=== PATIENT | female | born 1990 | race Two or more races ===

== ENCOUNTER 2024-04-18 20:35 | Observation (INO) | payer OTHER ==
[~2024-04-18] VITALS: Ht 157.5 cm; Wt 72.6 kg
[2024-04-18 20:50] VITALS: BP 124/80; PULSE 122; RESP 20; TEMP 98
== END 2024-04-18 21:50 | disposition home or self-care (01) ==
LOC: MLD 20:35
PROVIDERS: ADMIT Obstetrics & Gynecology; ATTEND Obstetrics & Gynecology
DX: O26.893 Other specified pregnancy related conditions, third trimester (principal); R10.9 Unspecified abdominal pain; Z3A.33 33 weeks gestation of pregnancy
CPT/HCPCS: G0378; G0379; 81000